=== PATIENT | female | born 1980 | race Caucasian/White ===

== ENCOUNTER 2018-11-14 18:28 | Emergency (ER) | payer BC, OTHER ==
[~2018-11-14] VITALS: Ht 167.6 cm; Wt 48.1 kg
--- NOTE | 2018-11-14 18:33 | NUR ---
BIB FRIEND, C/O LEFT SIDE OF FACE NUMBNESS x 1 HR OFFC SPEC, TO ER BED 9, HOOKED TO MONITOR, CHANGED TO GOWN, IVP STARTED AT RAC 18G, PATENT. DR DE LUNA AT BEDSIDE.
[2018-11-14 19:01] LABS: BASOPHILS # (AUTO) 0.1 /CMM (0.0-0.2); BASOPHILS % (AUTO) 0.8 % (0.0-2.0); EOSINOPHILS % (AUTO) 2.9 % (0.0-6.0); HEMATOCRIT 43 % (33-45); HEMOGLOBIN 14.7 g/dL (11.5-14.8); LYMPHOCYTES # (AUTO) 1.8 /CMM (0.8-4.8); LYMPHOCYTES % (AUTO) 23.3 % (20.0-44.0); MEAN CORPUSCULAR HGB CONC 34 g/dl (31.0-36.0); MEAN CORPUSCULAR VOLUME 96 fL (82-100); MONOCYTES # (AUTO) 0.7 /CMM (0.1-1.30); MONOCYTES % (AUTO) 9.1 % (2.0-12.0); NEUTROPHILS % (AUTO) 63.9 % (43.0-81.0); PLATELET COUNT (AUTO) 415 /CMM (150-450); RED BLOOD CELL COUNT(AUTO) 4.51 MIL/uL (4.0-5.2); WHITE BLOOD COUNT (AUTO) 7.9 K/uL (4.3-11.0)
[2018-11-14] MEDS ORDERED: LORAZEPAM INJ 2 MG/ML VIAL ONE (19:08)
[2018-11-14 19:09] LABS: CALCIUM, SERUM 9.1 mg/dL (8.5-10.1); CREATININE 0.9 mg/dL (0.6-1.3); POTASSIUM 3.4 mmol/L (3.5-5.1)
--- NOTE | 2018-11-14 19:12 | NUR ---
PT RECEIVED FROM MARIANNE DUNLAP FOR LITO. PT IN BED AAOX4. NO RESP DISTRESS NOTED. TALKING WIHT FREINDS AT BEDSIDE.
[2018-11-14] MEDS: LORAZEPAM INJ 2 MG/ML VIAL IV ONE (19:13)
[2018-11-14] MEDS: IV NS 0.9% 1,000 ML BAG IV ONE (19:13)
--- NOTE | 2018-11-14 19:13 | NUR ---
REPORT GIVEN TO LUISANA LOPES FOR [facility]ITO
[2018-11-14 19:15] LABS: ALBUMIN 4.1 g/dL (3.4-5.0); BILIRUBIN,DIRECT 0.1 mg/dL (0.0-0.2); BILIRUBIN,TOTAL 0.4 mg/dL (0.2-1.0); TOTAL PROTEIN, SERUM 7.8 g/dL (6.4-8.2)
[2018-11-14 19:48] LABS: APPEARANCE,URINE Slightly Cloudy (CLEAR); BILIRUBIN,URINE Negative (NEGATIVE); BLOOD, URINE Small Ery/uL (NEGATIVE); COLOR,URINE Other (YELLOW); KETONES,URINE Negative (NEGATIVE); LEUKOCYTE ESTERASE ,URINE Small (NEGATIVE); NITRITE, URINE Negative (NEGATIVE); PROTEIN,URINE Negative (NEGATIVE); UGLUCOSE Negative (NEGATIVE); UROBILINOGEN,URINE 0.2 EU/dL (0.2)
[2018-11-14 19:57] LABS: BACTERIA,URINE Few /HPF (None Seen); RBC,URINE 0-2 /HPF (0-2); SQUAMOUS EPITHELIAL CELL,UR Few /HPF (None Seen); WBC,URINE 0-2 /HPF (0-3)
--- NOTE | 2018-11-14 20:04 | NUR ---
PT BACK FROM CT
[2018-11-14 20:56] VITALS: BP 103/66
--- NOTE | 2018-11-14 20:56 | NUR ---
Patient discharged to home in stable condition. Written and verbal after care instructions given. Patient verbalizes understanding of instruction.IV removed. Catheter intact and site benign. Pressure and 4x4 applied to site. No bleeding noted. Pt ambulatory with a steady gait
== END 2018-11-14 20:57 | disposition home or self-care (01) ==
LOC: ER 18:28
DX: F41.9 Anxiety disorder, unspecified (principal); R20.2 Paresthesia of skin; F32.9 Major depressive disorder, single episode, unspecified; F43.10 Post-traumatic stress disorder, unspecified; R94.31 Abnormal electrocardiogram [ECG] [EKG]; Z60.2 Problems related to living alone
CPT/HCPCS: 36415; 70450; 71045; 80048; 80076; 80305; 81001; 85025; 93005; 96374; 99284; J2060; J7030; 81000-TC